=== PATIENT | female | born 2000 | race Hispanic/Latino ===

== ENCOUNTER 2022-09-28 11:16 | Inpatient (IN) | payer MEDICAID, OTHER, SELFPAY ==
[2022-09-28 11:57] VITALS: BMI 27.8
[2022-09-28] MEDS ORDERED: Promethazine HCl 25 MG/ML VIAL IM PRN (17:48)
[2022-09-28] MEDS ORDERED: Butorphanol Tartrate 1 MG/ML VIAL SLOW IVP PRN (17:48)
[2022-09-28] MEDS ORDERED: Diphenoxylate HCl/Atropine Tablet PO PRN (17:48)
[2022-09-28] MEDS ORDERED: Ondansetron PF 4 MG/2 ML Vial IVP PRN (17:48)
[2022-09-28] MEDS ORDERED: Carboprost 250 MCG/ML AMP IM PRN (17:48)
[2022-09-28] MEDS ORDERED: Ibuprofen 800 MG TAB PO PRN (17:48)
[2022-09-28] MEDS ORDERED: Misoprostol 200 MCG TAB PR PRN (17:48)
[2022-09-28] MEDS ORDERED: hydrALAZINE 20 MG/ML VIAL SLOW IVP PRN (17:48)
[2022-09-28] MEDS ORDERED: HYDROcodone/Acetaminophen 5/325 mg Tablet PO PRN (17:48)
[2022-09-28] MEDS ORDERED: Lidocaine 1% (PF) 30 ML VIAL SC PRN (17:48)
[2022-09-28] MEDS ORDERED: Acetaminophen 500 MG TAB PO PRN (17:48)
[2022-09-28] MEDS ORDERED: Methylergonovine 0.2 MG/ML VIAL IM PRN (17:48)
[2022-09-28] MEDS ORDERED: NS w/ Oxytocin 30 units 500 ML IV SCH ×2 (18:00)
[2022-09-28] MEDS ORDERED: Lactated Ringer's 1,000 ML IV SCH (18:00)
[2022-09-28 19:21] LABS: Hemoglobin 12.6 g/dL (12.0-15.5); Mean Corpuscular HGB CONC 34.9 g/dL (32.0-36.0); Mean Corpuscular Hemoglobin 30.3 pg (27.0-33.0); Mean Corpuscular Volume 86.8 fl (81.6-98.3); Mean Platelet Volume 12.3 fl (7.4-10.4); Platelet Count 195 10x3/uL (150-450); RBC Distribution Width 13.6 % (11.5-14.5); Red Blood Cell (RBC) Count 4.16 10x6/uL (3.90-5.03); White Blood Cell (WBC) Count 11.1 10x3/uL (3.5-10.5)
[2022-09-28 19:51] LABS: Hep B Surf Ag Non-Reactive S/CO (NonReactive)
[2022-09-28 19:52] LABS: Syphilis Antibody Nonreactive (Nonreactive)
[2022-09-28] MEDS: Misoprostol 100 MCG TAB VAG SCH (20:27)
[2022-09-28 20:47] LABS: SARS-CoV-2 NAA Rapid Test Not Detected (NotDetected)
[2022-09-29] MEDS: Misoprostol 100 MCG TAB VAG SCH ×2 (02:42→15:13)
[2022-09-29] MEDS ORDERED: HYDROcodone/Acetaminophen 5/325 mg Tablet PO PRN ×2 (14:26)
[2022-09-29] MEDS ORDERED: Benzocaine-Menthol 82.5 ML CAN TOP PRN (14:26)
[2022-09-29] MEDS ORDERED: NS w/ Oxytocin 30 units 500 ML IV SCH (14:26)
[2022-09-29] MEDS ORDERED: Ondansetron PF 4 MG/2 ML Vial IVP PRN (14:26)
[2022-09-29] MEDS ORDERED: Milk Of Magnesia 30 ML UDCUP PO PRN (14:26)
[2022-09-29] MEDS ORDERED: Lanolin Ointment 7 GM TUBE TOP PRN (14:26)
[2022-09-29] MEDS ORDERED: Promethazine HCl 25 MG/ML VIAL IM PRN (14:26)
[2022-09-29] MEDS ORDERED: Preparation H Ointment 28 GM TUBE PR PRN (14:26)
[2022-09-29] MEDS ORDERED: Boostrix 0.5 ML (Tdap) VIAL (>/=7 yrs of age) IM ONE (14:26)
[2022-09-29] MEDS ORDERED: hydrALAZINE 20 MG/ML VIAL SLOW IVP PRN (14:26)
[2022-09-29] MEDS ORDERED: diphenhydrAMINE 25 MG CAP PO PRN (14:26)
[2022-09-29] MEDS ORDERED: Bisacodyl 10 MG SUPP PR PRN (14:26)
[2022-09-29] MEDS: Ferrous Sulfate 325 MG TAB PO SCH (21:32)
[2022-09-29] MEDS: Docusate 100 MG CAP PO SCH (22:08)
[2022-09-29] MEDS: Ibuprofen 800 MG TAB PO SCH (22:08)
[2022-09-30] MEDS: Ibuprofen 800 MG TAB PO SCH ×2 (05:25→13:27)
[2022-09-30] MEDS: Ferrous Sulfate 325 MG TAB PO SCH (07:22)
[2022-09-30] MEDS ORDERED: Prenatal Vitamin 1 TAB PO SCH (09:00)
[2022-09-30] MEDS: Docusate 100 MG CAP PO SCH (09:16)
[2022-09-30 11:41] VITALS: BP 103/63; TEMP 98.3
== END 2022-09-30 14:50 | disposition home or self-care (01) | DRG 807 ==
LOC: CSHLD/OP 11:16 → CSHLD 17:33 → CSHPP 09-29 14:50
PROVIDERS: ADMIT Family Medicine; ATTEND Family Medicine
PROC: 10907ZC Drainage of Amniotic Fluid, Therapeutic from Products of Conception, Via Natural or Artificial Opening (ICD-10-PCS; 2022-09-28)
PROC: 3E0P7VZ Introduction of Hormone into Female Reproductive, Via Natural or Artificial Opening (ICD-10-PCS; 2022-09-28)
PROC: 10E0XZZ Delivery of Products of Conception, External Approach (ICD-10-PCS; principal; 2022-09-29)
PROC: 0HQ9XZZ Repair Perineum Skin, External Approach (ICD-10-PCS; 2022-09-29)
DX: O70.0 First degree perineal laceration during delivery (principal); Z37.0 Single live birth; Z20.822 Contact with and (suspected) exposure to COVID-19; Z3A.39 39 weeks gestation of pregnancy
CPT/HCPCS: 76819; 85027; 86780; 86850; 86900; 86901; 87340; 99285; J2590; U0002

== ENCOUNTER 2023-06-07 10:15 | Emergency (ER) | payer MEDICAID, SELFPAY ==
[2023-06-07 11:13] LABS: Bilirubin Neg (Negative); Blood, Urine Negative (Negative); Clarity Slightly Cloudy (Clear); Glucose, Urine (Dipstick) Normal (Negative); Ketone, Urine Negative (Negative); Leukocyte 25 (Negative); Nitrite Negative (Negative); Protein, Urine (Dipstick) 30 mg/dl (Neg-Trace); Urobilinogen Normal mg/dL (Less than 2)
[2023-06-07 11:14] LABS: Red Blood Cell (RBC) Count 4.38 10x6/uL (3.90-5.03); White Blood Cell (WBC) Count 10.5 10x3/uL (3.5-10.5)
[2023-06-07 11:15] LABS: #Monocytes 0.6 10x3/uL (0.0-1.1); #Neutrophils 7.7 10x3/uL (1.5-8.4); %Basophils 0.2 % (0.0-2.0); %Eosinophils 0.2 % (0.0-6.0); %Lymphocytes 20.5 % (18.0-47.0); %Monocytes 5.5 % (0.0-10.0); %Neutrophils 73.3 % (40.0-75.0); Hemoglobin 12.9 g/dL (12.0-15.5); Mean Corpuscular HGB CONC 34.5 g/dL (32.0-36.0); Mean Corpuscular Hemoglobin 29.5 pg (27.0-33.0); Mean Corpuscular Volume 85.4 fl (81.6-98.3); Mean Platelet Volume 11.1 fl (7.4-10.4); Platelet Count 247 10x3/uL (130-400); RBC Distribution Width 13.1 % (11.5-14.5)
[2023-06-07 11:22] LABS: CAUTI Indications for Culture Pregnancy; RBC/HPF 0-3 HPF (0-3); WBC/HPF 0-3 HPF (0-3)
[2023-06-07 11:23] LABS: Bacteria/HPF Rare-Few HPF (None Seen); Mucous/LPF 1+ LPF (<2+)
[2023-06-07 11:25] LABS: Urine Culture Reflex Yes Yes
[2023-06-07 11:38] LABS: Chloride 106 mmol/L (98-107); Potassium 3.4 mmol/L (3.5-5.1); Sodium 138 mmol/L (136-145)
[2023-06-07 11:39] LABS: Anion Gap 12 mmol/L (10-20); BUN (Urea Nitrogen) 5 mg/dL (7.0-18.7); Calc. Creatinine Clearance 0 mL/min (70-130); Carbon Dioxide 23 mmol/L (22-29); Estimated GFR 126
[2023-06-07 11:40] LABS: ALT (SGPT) 16 U/L (8-55); AST (SGOT) 15 U/L (5-34); Albumin 4.2 g/dL (3.5-5.0); Alkaline Phosphatase 62 U/L (40-110); Bilirubin, Total 0.5 mg/dL (0.2-1.2); Glucose 90 mg/dL (70-105); Lipase 19 U/L (8-78); Protein, Total 7.2 g/dL (6.0-8.3)
[2023-06-07 12:18] LABS: Amphetamine Not Detected (NotDetected); Barbiturates Screen Not Detected (NotDetected); Benzodiazepine Screen Not Detected (NotDetected); Cocaine Metabolite Screen Not Detected (NotDetected); Methadone Not Detected (NotDetected); Methamphetamine Not Detected (NotDetected); Opiate Screen Not Detected (NotDetected); Oxycodone Screen Not Detected (NotDetected); Phencyclidine (PCP) Not Detected (NotDetected); THC/Cannabinoid Screen Not Detected (NotDetected); Tricyclic Screen Not Detected (NotDetected)
[2023-06-07 12:57] LABS: Acetaminophen Less than 10 mcg/mL (10.0-30.0); Alcohol Less than 10.0 mg/dL (Less than 10); Salicylate Less than 8.0 mg/dL (15.0-30.0)
== END 2023-06-07 16:58 | disposition home or self-care (01) ==
LOC: CSHERS 10:15
DX: O99.611 Diseases of the digestive system complicating pregnancy, first trimester (principal); O99.341 Other mental disorders complicating pregnancy, first trimester; R45.851 Suicidal ideations; Z3A.10 10 weeks gestation of pregnancy
CPT/HCPCS: 36415; 76856; 80053; 80306; 80307; 81001; 83690; 85025; 86900; 86901; 87086

== ENCOUNTER 2023-10-04 15:19 | Outpatient (CLI) | payer OTHER | END 2023-10-04 15:20 | disposition home or self-care (01) | LOC: CSHULT 15:19 | PROVIDERS: ATTEND Family Medicine | DX: Z34.92 Encounter for supervision of normal pregnancy, unspecified, second trimester (principal); Z3A.27 27 weeks gestation of pregnancy | CPT/HCPCS: 76805 ==

== ENCOUNTER 2023-12-20 18:03 | Day surgery (SDC) | payer OTHER ==
[2023-12-20 19:04] VITALS: BMI 29.2
[2023-12-20] MEDS ORDERED: hydrALAZINE 20 MG/ML VIAL SLOW IVP PRN (19:18)
== END 2023-12-20 19:35 | disposition home or self-care (01) ==
LOC: CSHLD/OP 18:03
PROVIDERS: ATTEND Family Medicine
DX: O26.853 Spotting complicating pregnancy, third trimester (principal); Z3A.39 39 weeks gestation of pregnancy; Z79.899 Other long term (current) drug therapy

== ENCOUNTER 2023-12-25 15:42 | Inpatient (IN) | payer MEDICAID, OTHER ==
[2023-12-25] MEDS ORDERED: hydrALAZINE 20 MG/ML VIAL SLOW IVP PRN ×2 (16:34→17:51)
[2023-12-25] MEDS ORDERED: Ondansetron PF 4 MG/2 ML Vial IVP PRN ×2 (16:36→17:51)
[2023-12-25] MEDS: Acetaminophen 500 MG TAB PO SCH (16:54)
[2023-12-25] MEDS: Lactated Ringer's 1,000 ML IV SCH (16:55)
[2023-12-25] MEDS ORDERED: Benzocaine/Menthol 1 LOZ LOZ PO PRN (17:48)
[2023-12-25] MEDS ORDERED: Promethazine HCl 25 MG/ML VIAL IM PRN (17:51)
[2023-12-25 17:59] LABS: #Eosinphils 0.1 10x3/uL (0.0-0.5); #Monocytes 0.7 10x3/uL (0.0-1.1); #Neutrophils 13.7 10x3/uL (1.5-8.4); %Basophils 0.3 % (0.0-2.0); %Eosinophils 0.5 % (0.0-6.0); %Monocytes 4.5 % (0.0-10.0); %Neutrophils 88.2 % (40.0-75.0); Hematocrit 41.7 % (34.9-44.5); Hemoglobin 14.6 g/dL (12.0-15.5); Mean Corpuscular Hemoglobin 29.6 pg (27.0-33.0); Mean Corpuscular Volume 84.6 fl (81.6-98.3); Mean Platelet Volume 12.2 fl (7.4-10.4); Platelet Count 216 10x3/uL (150-450); RBC Distribution Width 13.8 % (11.5-14.5); Red Blood Cell (RBC) Count 4.93 10x6/uL (3.90-5.03); White Blood Cell (WBC) Count 15.5 10x3/uL (3.5-10.5)
[2023-12-25] MEDS ORDERED: Lactated Ringer's 1,000 ML IV SCH ×2 (18:00→22:30)
[2023-12-25 18:05] LABS: Lactic Acid 1.3 mmol/L (0.5-2.2)
[2023-12-25 18:11] LABS: ALT (SGPT) 19 U/L (8-55); AST (SGOT) 30 U/L (5-34); Alkaline Phosphatase 177 U/L (40-110); Anion Gap 18 mmol/L (10-20); BUN (Urea Nitrogen) 5 mg/dL (7.0-18.7); Bilirubin, Total 0.6 mg/dL (0.2-1.2); Calc. Creatinine Clearance 0 mL/min (70-130); Calcium 8.9 mg/dL (7.8-10.44); Carbon Dioxide 16 mmol/L (22-29); Chloride 104 mmol/L (98-107); Estimated GFR 122; Globulin 3.9 g/dL (2.4-3.5); Glucose 83 mg/dL (70-105); Potassium 3.3 mmol/L (3.5-5.1); Protein, Total 7.9 g/dL (6.0-8.3); Sodium 135 mmol/L (136-145)
[2023-12-25 18:28] LABS: SARS-CoV-2 NAA Rapid Test Not Detected (NotDetected)
[2023-12-25 18:31] LABS: Syphilis Antibody Nonreactive (Nonreactive); Syphilis Antibody Index 0.13 S/CO (<1.00 Non-Reactive)
[2023-12-25 18:32] LABS: HBSAg Index 0.38 S/CO (0-0.99); Hep B Surf Ag - L&D Non-Reactive S/CO (NonReactive)
[2023-12-25] MEDS: Azithromycin 500 MG in Sodium Chloride 0.9% 250 ML 250 ML IVPB SCH (19:09)
[2023-12-25 19:22] LABS: Bilirubin Neg (Negative); Blood, Urine 25 (Negative); Clarity Cloudy (Clear); Glucose, Urine (Dipstick) Normal (Negative); Ketone, Urine 150 mg/dL (Negative); Leukocyte 500 (Negative); Nitrite Negative (Negative); Protein, Urine (Dipstick) 30 mg/dl (Neg-Trace); Urobilinogen Normal mg/dL (Less than 2); pH, Urine 6.5 (5.0-9.0)
[2023-12-25] MEDS: Potassium Chloride 20 MEQ TAB PO SCH (19:40)
[2023-12-25 20:06] LABS: Bacteria/HPF 1+ HPF (None Seen); CAUTI Indications for Culture Pregnancy; RBC/HPF 0-3 HPF (0-3)
[2023-12-25 20:08] LABS: Urine Culture Reflex Yes Yes
[2023-12-25] MEDS: Oseltamivir 75 MG CAP PO SCH (20:52)
[2023-12-25] MEDS: cefTRIAXone\\ROCEPHIN 1 GM in Sodium Chloride 0.9% 100 ML IVPB SCH (20:52)
[2023-12-25] MEDS: diphenhydrAMINE 50 MG/ML VIAL IVP SCH (21:02)
[2023-12-25] MEDS ORDERED: Methylergonovine 0.2 MG/ML VIAL IM PRN (22:24)
[2023-12-25] MEDS ORDERED: Carboprost 250 MCG/ML AMP IM PRN (22:24)
[2023-12-25] MEDS ORDERED: Diphenoxylate HCl/Atropine Tablet PO PRN (22:24)
[2023-12-25] MEDS ORDERED: Lidocaine 1% (PF) 30 ML VIAL SC PRN (22:24)
[2023-12-25] MEDS ORDERED: Misoprostol 200 MCG TAB PR PRN (22:24)
[2023-12-25] MEDS ORDERED: Tranexamic Acid 1,000 MG/10 ML VIAL IVP PRN (22:24)
[2023-12-25] MEDS ORDERED: Oxytocin 30 units/NS 500 ML 500 ML IV SCH ×2 (22:30→22:45)
[2023-12-25] MEDS ORDERED: Sodium Chloride 0.9% 1,000 ML IV SCH (22:45)
[2023-12-25] MEDS: Acetaminophen 325 MG TAB PO PRN (23:23)
[2023-12-25] MEDS: hydrOXYzine Pamoate 25 mg Capsule PO SCH (23:23)
[2023-12-25] MEDS ORDERED: Lidocaine Viscous Sol 2% 15 ml UD Cup SSW PRN (23:31)
[2023-12-26 03:22] LABS: #Monocytes 1.3 10x3/uL (0.0-1.1); #Neutrophils 11.7 10x3/uL (1.5-8.4); %Basophils 0.3 % (0.0-2.0); %Lymphocytes 10.3 % (18.0-47.0); %Neutrophils 79.3 % (40.0-75.0); Hematocrit 34.4 % (34.9-44.5); Hemoglobin 11.8 g/dL (12.0-15.5); Mean Corpuscular HGB CONC 34.3 g/dL (32.0-36.0); Mean Corpuscular Hemoglobin 29.1 pg (27.0-33.0); Mean Corpuscular Volume 84.9 fl (81.6-98.3); Mean Platelet Volume 11.8 fl (7.4-10.4); Platelet Count 184 10x3/uL (150-450); RBC Distribution Width 14.1 % (11.5-14.5); Red Blood Cell (RBC) Count 4.05 10x6/uL (3.90-5.03); White Blood Cell (WBC) Count 14.8 10x3/uL (3.5-10.5)
[2023-12-26 03:59] LABS: ALT (SGPT) 16 U/L (8-55); AST (SGOT) 24 U/L (5-34); Albumin 3.1 g/dL (3.5-5.0); Alkaline Phosphatase 135 U/L (40-110); Anion Gap 13 mmol/L (10-20); BUN (Urea Nitrogen) 6 mg/dL (7.0-18.7); Bilirubin, Total 0.4 mg/dL (0.2-1.2); Calc. Creatinine Clearance 0 mL/min (70-130); Calcium 8.1 mg/dL (7.8-10.44); Carbon Dioxide 16 mmol/L (22-29); Chloride 108 mmol/L (98-107); Estimated GFR 125; Globulin 2.8 g/dL (2.4-3.5); Glucose 124 mg/dL (70-105); Potassium 3.3 mmol/L (3.5-5.1); Protein, Total 5.9 g/dL (6.0-8.3); Sodium 134 mmol/L (136-145)
[2023-12-26] MEDS: Oxytocin 30 units/NS 500 ML 500 ML IV SCH (07:54)
[2023-12-26 10:19] VITALS: BMI 29.2
[2023-12-26] MEDS: fentaNYL 50 mcg/mL 1 mL Vial SLOW IVP PRN (11:41)
[2023-12-26] MEDS: Ibuprofen 800 MG TAB PO PRN (15:31)
[2023-12-26] MEDS: HYDROcodone/Acetaminophen 5/325 mg Tablet PO PRN (15:31)
[2023-12-26] MEDS ORDERED: Ondansetron PF 4 MG/2 ML Vial IVP PRN (17:30)
[2023-12-26] MEDS ORDERED: Benzocaine-Menthol 82.5 ML CAN TOP PRN (17:30)
[2023-12-26] MEDS ORDERED: HYDROcodone/Acetaminophen 5/325 mg Tablet PO PRN (17:30)
[2023-12-26] MEDS ORDERED: hydrALAZINE 20 MG/ML VIAL SLOW IVP PRN (17:30)
[2023-12-26] MEDS ORDERED: Bisacodyl 10 MG SUPP PR PRN (17:30)
[2023-12-26] MEDS ORDERED: Promethazine HCl 25 MG/ML VIAL IM PRN (17:30)
[2023-12-26] MEDS ORDERED: diphenhydrAMINE 25 MG CAP PO PRN (17:30)
[2023-12-26] MEDS ORDERED: Lanolin Ointment 7 GM TUBE TOP PRN (17:30)
[2023-12-26] MEDS ORDERED: Milk Of Magnesia 30 ML UDCUP PO PRN (17:30)
[2023-12-26] MEDS: Boostrix 0.5 ML (Tdap) VIAL (>/=7 yrs of age) IM ONE (17:40)
[2023-12-26] MEDS ORDERED: cefTRIAXone\\ROCEPHIN 1 GM in Sodium Chloride 0.9% 100 ML IVPB SCH (18:00)
[2023-12-26] MEDS ORDERED: Azithromycin 500 MG in Sodium Chloride 0.9% 250 ML 250 ML IVPB SCH (18:00)
[2023-12-26] MEDS: Cephalexin 500 MG CAP PO SCH (18:41)
[2023-12-26] MEDS: Docusate 100 MG CAP PO SCH (21:08)
[2023-12-27] MEDS: Ibuprofen 800 MG TAB PO SCH (01:00)
[2023-12-27] MEDS: Ferrous Sulfate 325 MG TAB PO SCH (08:00)
[2023-12-27] MEDS: Prenatal Vitamin 1 TAB PO SCH (09:13)
[2023-12-27 13:06] VITALS: BP 118/59; TEMP 98.4
== END 2023-12-27 18:50 | disposition home or self-care (01) | DRG 805 ==
LOC: CSHLD/OP 15:42 → CSHLD 17:51 → CSHPP 12-26 17:12
PROVIDERS: ADMIT Family Medicine; ATTEND Family Medicine
PROC: 10E0XZZ Delivery of Products of Conception, External Approach (ICD-10-PCS; principal; 2023-12-26)
PROC: 10907ZC Drainage of Amniotic Fluid, Therapeutic from Products of Conception, Via Natural or Artificial Opening (ICD-10-PCS; 2023-12-26)
DX: O23.43 Unspecified infection of urinary tract in pregnancy, third trimester (principal); A41.89 Other specified sepsis; Z37.0 Single live birth; O75.3 Other infection during labor; N39.0 Urinary tract infection, site not specified; O66.0 Obstructed labor due to shoulder dystocia; Z3A.40 40 weeks gestation of pregnancy; O36.8130 Decreased fetal movements, third trimester, not applicable or unspecified; J10.1 Influenza due to other identified influenza virus with other respiratory manifestations
CPT/HCPCS: 36415; 71045; 76819; 80053; 81001; 83605; 85025; 86780; 86850; 86900; 86901; 87040; 87081; 87086; 87340; 87430; J0456; J0696; J1200; J2590; J3010; J3490; J7050; Q0177

== ENCOUNTER 2025-10-10 08:43 | Day surgery (SDC) | payer OTHER, SELFPAY ==
[2025-10-10 09:02] VITALS: BMI 26.6
[2025-10-10] MEDS: Acetaminophen 500 MG TAB PO SCH (09:33)
== END 2025-10-10 10:27 | disposition home or self-care (01) ==
LOC: CSHLD/OP 08:43
PROVIDERS: ATTEND Obstetrics & Gynecology
DX: O99.891 Other specified diseases and conditions complicating pregnancy (principal); R00.2 Palpitations; R06.02 Shortness of breath; R10.30 Lower abdominal pain, unspecified; N89.8 Other specified noninflammatory disorders of vagina; O36.8120 Decreased fetal movements, second trimester, not applicable or unspecified; Z3A.20 20 weeks gestation of pregnancy; Z79.899 Other long term (current) drug therapy
CPT/HCPCS: 76815; 93005; 93010; 99282